=== PATIENT | male | born 1965 ===

== ENCOUNTER 2020-10-15 10:54 | Emergency (ER) | payer OTHER ==
[~2020-10-15] VITALS: Ht 177.8 cm; Wt 81.6 kg
[2020-10-15] MEDS ORDERED: NORVASC5 MG (11:08)
[2020-10-15] MEDS ORDERED: ATACAND16 MG (11:08)
[2020-10-15] MEDS ORDERED: CRESTOR5 MG (11:09)
== END 2020-10-15 16:27 | disposition home or self-care (01) ==
LOC: ER 10:54
DX: M25.561 Pain in right knee (principal)